=== PATIENT | male | born 1990 | race African-American/Black ===

== ENCOUNTER 2022-05-13 15:42 | Emergency (ER) | payer OTHER ==
[~2022-05-13] VITALS: Ht 170.2 cm; Wt 76.0 kg
[2022-05-13 15:43] VITALS: BP 125/79
[2022-05-13] MEDS ORDERED: PERCOCET 5MG/325MG TAB PO ONE (18:50)
[2022-05-13] MEDS ORDERED: NAPR-837 PO (19:38)
[2022-05-13] MEDS ORDERED: ULTR50TA8 PO (19:38)
== END 2022-05-13 19:45 | disposition home or self-care (01) ==
LOC: M ED 15:42
DX: S46.001A Unspecified injury of muscle(s) and tendon(s) of the rotator cuff of right shoulder, initial encounter (principal); W19.XXXA Unspecified fall, initial encounter; Z79.899 Other long term (current) drug therapy

== ENCOUNTER → 2022-06-02 | Outpatient (CLI) | payer OTHER ==
[~2022-06-02] MED LIST: NAPR-837 PO; ULTR50TA8 PO
== END ==
LOC: M PLAIMG 06:42
PROVIDERS: ATTEND Physician Assistant
DX: M25.511 Pain in right shoulder (principal); M75.91 Shoulder lesion, unspecified, right shoulder

== ENCOUNTER 2024-05-04 06:08 | Emergency (ER) | payer OTHER ==
[~2024-05-04] VITALS: Ht 170.2 cm; Wt 83.0 kg
[2024-05-04] MEDS ORDERED: ACET1TAB55 (09:10)
[2024-05-04] MEDS ORDERED: D 50CAP2 (09:10)
[2024-05-04] MEDS: LIDOCAINE 2% MDV 20ML VIAL SC ONE (10:08)
[2024-05-04 10:49] VITALS: BP 148/90; TEMP 96.8; O2SAT 98
[2024-05-04] MEDS: BACITRACIN OINTMENT 30GM TUBE TOP ONE (10:52)
== END 2024-05-04 10:57 | disposition home or self-care (01) ==
LOC: M ED 06:08
DX: S61.216A Laceration without foreign body of right little finger without damage to nail, initial encounter (principal); X58.XXXA Exposure to other specified factors, initial encounter; Y92.9 Unspecified place or not applicable; Y93.9 Activity, unspecified; Y99.9 Unspecified external cause status

== ENCOUNTER 2024-06-14 12:18 | Day surgery (SDC) | payer OTHER ==
[~2024-06-14] VITALS: Ht 170.2 cm; Wt 82.4 kg
[~2024-06-14 12:18] MED LIST changes: +ACET1TAB55 PO; +D 50CAP2 PO; +TRANEXAMIC ACID 100 MG/ML 10ML VIAL IV ONE
[2024-06-14] MEDS ORDERED: LR 1,000 ML IV SCH (14:40)
[2024-06-14] MEDS: ceFAZolin SOD 2 GM in IV 1 EA IV ONE (18:41)
[2024-06-14] MEDS ORDERED: fentaNYL 100 MCG/2 ML INJECTION As Ordered ONE (18:59)
[2024-06-14] MEDS ORDERED: KETOROLAC 60MG 2ML VIAL As Ordered ONE (18:59)
[2024-06-14] MEDS ORDERED: ONDANSETRON 4MG 2ML VIAL As Ordered ONE (18:59)
[2024-06-14] MEDS ORDERED: dexmedeTOMIDine (4MCG/ML)200MCG/50ML BTL (PRECEDEX) As Ordered ONE (18:59)
[2024-06-14] MEDS ORDERED: METOCLOPRAMIDE INJ 10MG/2ML VIAL As Ordered ONE (18:59)
[2024-06-14] MEDS ORDERED: ACETAMINOPHEN 1000MG 100ML IV BAG As Ordered ONE (18:59)
[2024-06-14] MEDS ORDERED: MIDAZOLAM INJ 2MG/2ML VIAL As Ordered ONE (18:59)
[2024-06-14] MEDS ORDERED: propofoL 200 MG/20 ML VIAL As Ordered ONE (18:59)
[2024-06-14] MEDS ORDERED: LIDOCAINE 2% 100MG/5ML SDV (FOR ANES.) As Ordered ONE (18:59)
[2024-06-14] MEDS: LIDOCAINE W/EPINEPHRINE 1% 20ML VIAL As Ordered ONE (19:44)
[2024-06-14 20:26] VITALS: BP 128/80; TEMP 97.7; O2SAT 99
== END 2024-06-14 20:48 | disposition home or self-care (01) ==
LOC: M SDC 12:18
PROVIDERS: ATTEND Orthopaedic Surgery
DX: T84.84XA Pain due to internal orthopedic prosthetic devices, implants and grafts, initial encounter (principal); Z47.2 Encounter for removal of internal fixation device; Z88.5 Allergy status to narcotic agent
CPT/HCPCS: 20680; 76000; J0131; J0690; J1100; J1885; J2250; J2405; J2765; J3010

== ENCOUNTER 2024-08-09 02:14 | Emergency (ER) | payer OTHER ==
[~2024-08-09] VITALS: Ht 170.2 cm; Wt 84.2 kg
[~2024-08-09 02:14] MED LIST changes: -TRANEXAMIC ACID 100 MG/ML 10ML VIAL IV ONE
[2024-08-09 03:09] LABS: APPEARANCE, URINE CLEAR (CLEAR); BACTERIA, URINE AUTO NEGATIVE (NEGATIVE); BILIRUBIN, URINE AUTO NEGATIVE (NEGATIVE); BLOOD, URINE BLOOD NEGATIVE (NEGATIVE); COLOR, URINE YELLOW (YELLOW); GLUCOSE, URINE (UA) AUTO NEGATIVE (NEGATIVE); KETONE, URINE AUTO NEGATIVE (NEGATIVE); LEUKOCYTE ESTERASE, URINE AUTO 1+ (NEGATIVE); MUCUS, URINE SMALL (NEGATIVE); NITRITE, URINE AUTO NEGATIVE (NEGATIVE); PROTEIN, URINE AUTO NEGATIVE (NEGATIVE); RBC, URINE AUTO 1 /HPF (0-3); SPECIFIC GRAVITY URINE AUTO 1.016 (1.002-1.035); SQUAMOUS EPITHELIAL CELL UR AU 0 /HPF (0-6); UROBILINOGEN, URINE AUTO 0.2 mg/dL (0.0-2.0); WBC, URINE AUTO 42 /HPF (0-3)
[2024-08-09 05:42] LABS: Trichomonas vaginalis (AMP) NOT DETECTED (NEGATIVE)
[2024-08-09 06:21] LABS: GC DNA AMPLIFICATION NEGATIVE (NEGATIVE)
[2024-08-09] MEDS ORDERED: MOXI1TAB PO (06:39)
[2024-08-09 06:56] VITALS: BP 168/98; TEMP 97.7; O2SAT 98
== END 2024-08-09 06:57 | disposition home or self-care (01) ==
LOC: M ED 02:14
DX: N34.1 Nonspecific urethritis (principal); Z79.899 Other long term (current) drug therapy; Z88.5 Allergy status to narcotic agent

== ENCOUNTER 2024-12-16 11:21 | Emergency (ER) | payer OTHER ==
[~2024-12-16] VITALS: Ht 170.2 cm; Wt 84.1 kg
[~2024-12-16 11:21] MED LIST changes: +MOXI1TAB PO
[2024-12-16] MEDS ORDERED: ALL10TAB2 PO (14:57)
[2024-12-16] MEDS ORDERED: OLOP2.5D3 OP (14:57)
[2024-12-16 15:15] VITALS: BP 151/96; TEMP 97.4; O2SAT 100
== END 2024-12-16 15:21 | disposition home or self-care (01) ==
LOC: M ED 11:21
DX: H10.13 Acute atopic conjunctivitis, bilateral (principal); Z88.5 Allergy status to narcotic agent